=== PATIENT | female | born 1990 | race Caucasian/White ===

== ENCOUNTER 2017-04-21 13:49 | Inpatient (IN) | payer MEDICAID ==
[2017-04-21] MEDS ORDERED: PHENYLEPHRINE-NS 100 MCG/ML 10 ML SYRINGE ONE ×2 (13:52→16:48)
[2017-04-21] MEDS ORDERED: Ketorolac Tromethamine 30 MG/ML VIAL ONE ×2 (13:52→16:48)
[2017-04-21] MEDS ORDERED: Dexamethasone 20 MG/5 ML VIAL ONE (13:52)
[2017-04-21] MEDS ORDERED: Ondansetron HCl/PF 4 MG/2 ML Vial ONE ×2 (13:52→18:00)
[2017-04-21] MEDS ORDERED: Promethazine HCl 25 MG/ML VIAL IM PRN ×2 (14:13→17:51)
[2017-04-21] MEDS ORDERED: Ondansetron HCl/PF 4 MG/2 ML Vial IVP PRN ×3 (14:13→17:51)
[2017-04-21] MEDS ORDERED: Meperidine HCl/PF 25 MG/ML VIAL IM/IV PRN (14:13)
[2017-04-21] MEDS ORDERED: Bicitra 30 ML UDCUP PO SCH (14:15)
[2017-04-21 14:19] VITALS: BMI 33.0
[2017-04-21 14:48] LABS: Hemoglobin 11.8 g/dL (12.0-16.0); Mean Corpuscular HGB CONC 35.2 g/dL (32.0-36.0); Mean Corpuscular Volume 96.6 fl (81.0-99.0); Mean Platelet Volume 6.8 fL (7.4-10.4); Platelet Count 189 thou/uL (130-400); RBC Distribution Width 12.5 % (11.5-14.5); Red Blood Cell (RBC) Count 3.48 mill/uL (4.20-5.40); White Blood Cell (WBC) Count 10.3 thou/uL (4.8-10.8)
[2017-04-21] MEDS ORDERED: Lactated Ringer's 1,000 ML IV SCH (15:00)
[2017-04-21 15:27] LABS: HBSAg Index 0.17 S/CO (0-0.99); Hep B Surf Ag Non-Reactive S/CO (NonReactive); Syphilis Antibody Nonreactive (Nonreactive); Syphilis Antibody Index 0.04 S/CO (<1.00 Non-Reactive)
--- NOTE | 2017-04-21 15:46 | PDOC.LDHP ---
Labor and Delivery H&P Chief complaint: decreased movement, other HPI: 26 yo @ 37w6d by LMP c/w 16 week sono who presented to clinic with decreased FM. No VB. Rare ctx and ? LOF, Amnisure negative. BPP 07/16 due to oligohydramnios MALU 4 and edwin breech presentation. Pt sent to L &D for delivery via PLTCS due to malpresentation and oligohydramnios. Fetus also IUGR @ 10%. Due date: 05/06/17 Dating criteria: last menstrual period Grav: 3 Para: 1 OB History Details: 1 term without complications. Current complications: IUGR, oligohydramnios, breech Abnormal US findings: No Past Medical History: ? CHTN Current medications: pre- vitamins Previous surgical history: none Allergies/Adverse Reactions: Allergies Allergy/AdvReac Type Severity Reaction Status Date / Time No Known Allergies Allergy Verified 04/21/17 14:29 Social history: none - Physical Exam Vital signs reviewed and normal: yes General: NAD Heart: RRR Lungs: CTAB Abdomen: gravid Extremeties: no edema FHT: category 1 (140s, mod felisa, +accels, no decels) [place] contractions every: rare ctx - Vaginal Exam cm dilated: 1 Effacement: 25% Station: -3 - OB Labs Blood type: O RH: positive Antibody Screen: negative HIV: negative RPR: negative HEPSAg: negative 1 hour GCT: unknown 3 hour GTT: unknown GBS: negative Urine drug screen: not done - Assessment 37w6d IUP IUGR Oligohydramnios Breech presentation ? CHTN - Plan Plan: to OR for section (Recommended PLTCS rather than ECV due to oligohydramnios), informed consent obtained, anesthesia consult for pain management
[2017-04-21] MEDS ORDERED: CEFAZOLIN/Water 2 GM/20 ML SYRINGE SLOW IVP SCH (16:30)
[2017-04-21] MEDS ORDERED: CEFAZOLIN 1 GM VIAL ONE (16:42)
[2017-04-21] MEDS ORDERED: Morphine PF 1 MG/ML SYR ONE (16:44)
[2017-04-21] MEDS ORDERED: ePHEDrine/0.9% NaCl/PF SYRINGE 50 mg/10 ml ONE ×2 (16:48→18:08)
[2017-04-21] MEDS ORDERED: Oxytocin 10 UNITS/ML VIAL ONE (16:48)
[2017-04-21 17:38] LABS: Analyzer IN Cardio OR; Base Excess (BEa) -0.5 mEq/L (0 (+/-) 2.5)
[2017-04-21] MEDS ORDERED: Naloxone HCl 0.4 mg/ml Vial IVP PRN ×2 (17:51)
[2017-04-21] MEDS ORDERED: HYDROmorphone 2 MG/ML VIAL SLOW IVP PRN (17:51)
[2017-04-21] MEDS ORDERED: Promethazine HCl 25 MG SUPP PR PRN (17:51)
[2017-04-21] MEDS ORDERED: Eucerin (Mineral Oil/Petrolatum,White) 30 gm Jar TOP PRN (17:51)
[2017-04-21] MEDS ORDERED: Naloxone HCl 0.4 mg/ml Vial IV PRN (17:51)
[2017-04-21] MEDS ORDERED: Meperidine HCl/PF 25 MG/ML VIAL SLOW IVP PRN (17:51)
[2017-04-21] MEDS ORDERED: diphenhydrAMINE 50 MG/ML VIAL IVP PRN (17:51)
[2017-04-21] MEDS ORDERED: Communication Order-Pharmacy FS SCH (18:00)
[2017-04-21] MEDS ORDERED: Ketorolac Tromethamine 30 MG/ML VIAL IVP SCH (18:00)
[2017-04-21] MEDS ORDERED: Promethazine HCl 25 MG/ML VIAL ONE (18:00)
--- NOTE | 2017-04-21 18:07 | PDOC.OPDEL ---
OB Operative/Delivery Note Delivery Dr/Surgeon: Tiffanie Randall DO Pre-Delivery Diagnosis: other (37 week IUP, IUGR, olighydramnios, Edwin Breech presentation) Weeks gestation: 37 Anesthesia: spinal - Findings A Sex: male Weight: 5 lb 8 oz - 1 min: 7 - 5 min: 9 - Additional Findings/Plan Placenta delivered: spontaneous findings: low transverse hysterotomy without extension, normal uterus, normal tubes, normal ovaries Estimated blood loss: 800 cc Compilations/Other Findings: Infant in edwin breech presentation, delivered without difficulty. Nuchal x1 Normal cord gases Normal appearing placenta Post delivery plan: routine recovery (Dictation # [id number])
[2017-04-21] MEDS: Lactated Ringer's 1,000 ML IV SCH ×2 (19:05→23:23)
[2017-04-21] MEDS ORDERED: LR w/ Pitocin 40 units/1000 ML BAG IV SCH (20:26)
[2017-04-21] MEDS ORDERED: Methylergonovine 0.2 MG/ML VIAL IM PRN (20:26)
[2017-04-21] MEDS ORDERED: Bisacodyl 10 MG SUPP PR PRN (20:26)
[2017-04-21] MEDS ORDERED: Acetaminophen 325 MG TAB PO PRN (20:26)
[2017-04-21] MEDS ORDERED: Lanolin Ointment 7 GM TUBE TOP PRN (20:26)
[2017-04-21] MEDS ORDERED: Misoprostol 200 MCG TAB PR SCH (20:30)
--- NOTE | 2017-04-21 21:10 | OP ---
PREOPERATIVE DIAGNOSES: 1. A 37-week 6-day intrauterine . 2. Intrauterine growth restriction. 3. Oligohydramnios. 4. Edwin-breech presentation. POSTOPERATIVE DIAGNOSES: 1. A 37-week 6-day intrauterine . 2. Intrauterine growth restriction. 3. Oligohydramnios. 4. Edwin-breech presentation. PROCEDURE: Primary low transverse delivery via Pfannenstiel skin incision. SURGEON: Tiffanie Randall D.O. POURED CONCRETE WALL TECHNICIAN: Conner Montoya M.D. ESTIMATED BLOOD LOSS: 800 mL. IV FLUIDS: 1000 mL. URINE OUTPUT: 20 mL of clear urine. SPECIMEN: Cord gas and placenta FINDINGS: Normal appearing uterus, fallopian tubes, and ovaries bilaterally, scant clear amniotic fluid. Fetus in edwin breech presentation, 5lb8oz, apgars 7/9 with a nuchal cord, normal appearing placenta, and hemostasis at the completion of the procedure. INDICATIONS FOR THE PROCEDURE: Ms. David Mitchell is a 26-year-old G3, P1 at 37 weeks and 6 days, who presented to the clinic with decreased movement. Ultrasound was performed and noted that BPP of 6/8 due to oligohydramnios with an MALU of 4. Fetus was also in edwin-breech presentation and growth was noted to be equivalent with intrauterine growth restriction, thus estimated weight below the tenth percentile. Patient was counseled on findings and recommended for delivery due to edwin-breech presentation, oligohydramnios and IUGR. A primary delivery was recommended rather than an external cephalic version due to oligohydramnios and patient was amenable to procedure. PROCEDURE IN DETAIL: The patient was brought to the operating room and spinal anesthesia was placed. She was placed in supine position with a leftward tilt. heart tones were assessed to be in the 150s. Patient was given Ancef preoperatively. She was prepped and draped in a sterile fashion, a Rome catheter was placed. An official timeout was performed. A Pfannenstiel skin incision was made using the scalpel and this was carried down to underlying fascial layer. The fascia was incised in midline using the scalpel and extended bilaterally using Shields scissors. Superior aspect of the fascial incision was grasped using Anna clamps and tented upward dissected free from the underlying rectus abdominis muscles and the same was performed to the inferior aspect of the fascial incision. The peritoneum was then entered in bluntly. The peritoneal incision was extended using both blunt and sharp dissection. The low transverse hysterotomy was made using the scalpel and the hysterotomy was extended using blunt dissection. The amniotic membranes were ruptured, noting scant clear amniotic fluid. Infant was delivered in a edwin- breech presentation without difficulty. Infant was noted to have a nuchal cord x1, which was reduced. The 's cord was clamped and cut. The infant was handed to the waiting Neonatology team. Cord sample for cord gases was obtained and cord blood was also obtained. Placenta was delivered spontaneously intact. The uterus was cleared of all clot and debris. The hysterotomy was closed in a running locking fashion using 0 Monocryl and secondary imbrication layer was also performed. The hysterotomy was hemostatic after closure. The fallopian tubes and ovaries were evaluated and noted to be normal in appearance. The González O retractor was removed from the abdomen. The peritoneum was closed in a running fashion. The rectus abdominis muscles were evaluated hemostatic with use of the Bovie. The fascia was closed in a running fashion using 0 PDS. Subcutaneous layer was copiously irrigated and hemostatic using the Bovie. Subcutaneous layer was closed using 3-0 Vicryl and the skin was closed using 4-0 Monocryl and Dermabond. All counts were correct x3. There were no complications. Mother and infant were transferred to routine recovery. [facility]
[2017-04-21] MEDS: Ketorolac Tromethamine 30 MG/ML VIAL IVP PRN (23:18)
[2017-04-21] MEDS: Docusate Calcium (SURFAK) 240 MG CAP PO SCH (23:24)
[2017-04-21] MEDS: Ibuprofen 800 MG TAB PO SCH (23:24)
[2017-04-22] MEDS: Ibuprofen 800 MG TAB PO SCH ×3 (05:18→21:22)
[2017-04-22] MEDS: Ketorolac Tromethamine 30 MG/ML VIAL IVP PRN (05:19)
[2017-04-22 05:47] LABS: #Lymphocytes 1.4 thou/uL (1.20-3.40); #Monocytes 0.5 thou/uL (0.11-0.59); #Neutrophils 8.5 thou/uL (1.40-6.50); %Eosinophils 0.1 % (0.0-10.0); %Lymphocytes 13.2 % (21.0-51.0); %Monocytes 5.2 % (0.0-10.0); %Neutrophils 81.5 % (42.0-75.0); Hemoglobin 10.4 g/dL (12.0-16.0); Mean Corpuscular Hemoglobin 33.4 pg (27.0-31.0); Mean Corpuscular Volume 98.1 fl (81.0-99.0); Mean Platelet Volume 6.9 fL (7.4-10.4); Platelet Count 191 thou/uL (130-400); Red Blood Cell (RBC) Count 3.12 mill/uL (4.20-5.40); White Blood Cell (WBC) Count 10.5 thou/uL (4.8-10.8)
[2017-04-22] MEDS ORDERED: Meperidine HCl/PF 25 MG/ML VIAL IM/IV PRN (06:00)
--- NOTE | 2017-04-22 08:35 | PDOC.PP ---
Post Progress Note Post Day #: 1 Subjective: Doing well. Minimal lochia. Breast feeding. Pain controlled. PO intake tolerated: yes Flatus: yes Ambulation: yes Vital Signs (12 hours) Temp Pulse Resp BP Pulse Ox 04/22/17 03:32 97.8 F 61 18 116/59 L 98 04/21/17 23:00 98.4 F 63 18 04/21/17 22:55 98.4 F 63 18 125/60 98 04/21/17 21:40 98.1 F 61 18 127/69 98 Weight Weight 211 lb - Physical Examination General: NAD Cardiovascular: RRR Respiratory: non-labored breathing Abdominal: + bowel sounds, no distention, appropriately TTP Fundus firm & at: below umbilicus Extremities: negative homans (B) Skin: CS incision dry & intact, no rash Neurological: no gross focal deficits Psychiatric: A&Ox3, normal affect Result Diagrams: 04/22/17 05:13 Additional Labs: Post Labs Blood Type O POSITIVE 04/21/17 14:14 Hep Bs Antigen Non-Reactive S/CO (NonReactive) 04/21/17 14:14 (1) delivery delivered Code(s): O82 - ENCOUNTER FOR DELIVERY WITHOUT INDICATION Status: Acute (2) 37 weeks gestation of Code(s): Z3A.37 - 37 WEEKS GESTATION OF Status: Resolved (3) IUGR (intrauterine growth restriction) Status: Resolved (4) Oligohydramnios Code(s): O41.00X0 - OLIGOHYDRAMNIOS, UNSP TRIMESTER, NOT APPLICABLE OR UNSP Status: Resolved (5) Breech delivery Code(s): O32.1XX0 - MATERNAL CARE FOR BREECH PRESENTATION, UNSP Status: Acute - Assessment/Plan Continue post care. PRN pain meds. Plan for d/c 1-2 days.
[2017-04-22] MEDS: Docusate Calcium (SURFAK) 240 MG CAP PO SCH ×2 (09:07→21:22)
[2017-04-22] MEDS: HYDROcodone/Acetaminophen 5/325 mg Tablet PO PRN ×4 (09:07→22:21)
[2017-04-22] MEDS: Prenatal Vitamin 1 TAB PO SCH (09:07)
[2017-04-22] MEDS: Lactated Ringer's 1,000 ML IV SCH ×3 (09:56→23:50)
[2017-04-23] MEDS: HYDROcodone/Acetaminophen 5/325 mg Tablet PO PRN ×3 (02:18→10:48)
[2017-04-23] MEDS: Lactated Ringer's 1,000 ML IV SCH (04:46)
[2017-04-23] MEDS: Ibuprofen 800 MG TAB PO SCH ×2 (05:45→13:26)
[2017-04-23 08:53] VITALS: BP 121/71; TEMP 97.5
[2017-04-23] MEDS: Docusate Calcium (SURFAK) 240 MG CAP PO SCH (09:12)
[2017-04-23] MEDS: Prenatal Vitamin 1 TAB PO SCH (09:12)
--- NOTE | 2017-04-23 12:59 | PDOC.PP ---
Post Progress Note Post Day #: 2 Subjective: Pain controlled. Minimal lochia. Breast feeding. PO intake tolerated: yes Flatus: yes Ambulation: yes Vital Signs (12 hours) Temp Pulse Resp BP BP 04/23/17 07:50 97.5 F L 72 20 121/71 04/23/17 04:00 97.6 F 74 16 120/70 Weight Weight 211 lb - Physical Examination General: NAD Cardiovascular: RRR Respiratory: non-labored breathing Abdominal: no distention, appropriately TTP Fundus firm & at: below umbilicus Extremities: negative homans (B) Skin: CS incision dry & intact Neurological: no gross focal deficits Psychiatric: A&Ox3, normal affect Result Diagrams: 04/22/17 05:13 Additional Labs: Post Labs Blood Type O POSITIVE 04/21/17 14:14 Hep Bs Antigen Non-Reactive S/CO (NonReactive) 04/21/17 14:14 (1) delivery delivered Code(s): O82 - ENCOUNTER FOR DELIVERY WITHOUT INDICATION Status: Acute (2) 37 weeks gestation of Code(s): Z3A.37 - 37 WEEKS GESTATION OF Status: Resolved (3) IUGR (intrauterine growth restriction) Status: Resolved (4) Oligohydramnios Code(s): O41.00X0 - OLIGOHYDRAMNIOS, UNSP TRIMESTER, NOT APPLICABLE OR UNSP Status: Resolved (5) Breech delivery Code(s): O32.1XX0 - MATERNAL CARE FOR BREECH PRESENTATION, UNSP Status: Acute - Assessment/Plan PPD 2, doing well D/C home today with infant. F/U 2 weeks incision check
== END 2017-04-23 14:20 | disposition home or self-care (01) | DRG 765 ==
LOC: L&D 13:49 → 3SW 20:13
PROVIDERS: ADMIT Obstetrics & Gynecology; ATTEND Obstetrics & Gynecology
PROC: 10D00Z1 Extraction of Products of Conception, Low, Open Approach (ICD-10-PCS; principal; 2017-04-21)
DX: O36.5930 Maternal care for other known or suspected poor fetal growth, third trimester, not applicable or unspecified (principal); O41.03X0 Oligohydramnios, third trimester, not applicable or unspecified; Z37.0 Single live birth; Z3A.37 37 weeks gestation of pregnancy; O32.1XX0 Maternal care for breech presentation, not applicable or unspecified; O69.81X0 Labor and delivery complicated by cord around neck, without compression, not applicable or unspecified; O36.8130 Decreased fetal movements, third trimester, not applicable or unspecified
CPT/HCPCS: 36415; 51702; 82805; 84112; 85025; 85027; 86780; 86850; 86900; 86901; 87340; 88307; J0690; J1100; J1200; J1885; J2274; J2405; J2550; J2590